=== PATIENT | female | born 1985 ===

== ENCOUNTER 2019-03-04 17:17 | Emergency (ER) | payer SELFPAY ==
[2019-03-04 17:22] VITALS: BP 104/69; PULSE 79; RESP 18; TEMP 98.4; O2SAT 99
--- NOTE | 2019-03-04 19:05 | C.PDOC ---
History Of Present Illness 33 y/o female pt presents to the ER c/o subjective dry cough and sore throat for x2 days. Pt reports she also had subjective fever but it has now subsided. Pt denies chills, abdominal pain and headache. Time Seen by Provider: 03/04/19 18:14 Chief Complaint (Nursing): Cough, Cold, Congestion History Per: Patient History/Exam Limitations: no limitations Onset/Duration Of Symptoms: Days (x2) Current Symptoms Are (Timing): Still Present Past Medical History Reviewed: Historical Data, Nursing Documentation, Vital Signs Vital Signs: Last Vital Signs Temp 98.4 F 03/04/19 17:20 Pulse 79 03/04/19 17:20 Resp 18 03/04/19 17:20 BP 104/69 03/04/19 17:20 Pulse Ox 99 03/04/19 17:20 Family History: States: No Known Family Hx - Social History Hx Alcohol Use: No Hx Substance Use: No Review Of Systems Except As Marked, All Systems Reviewed And Found Negative. Constitutional: Positive for: Fever (now subsided ). Negative for: Chills ENT: Positive for: Throat Pain Respiratory: Positive for: Cough (dry ) Gastrointestinal: Negative for: Abdominal Pain Neurological: Negative for: Headache Physical Exam - Physical Exam Appears: Non-toxic, No Acute Distress, Other (coughing ) Skin: Warm, Dry Ear(s): Bilateral: Normal Oral Mucosa: Moist Throat: Normal, No Erythema, No Exudate Neurological/Psych: Oriented x3, Normal Speech, Normal Cognition ED Course And Treatment O2 Sat by Pulse Oximetry: 99 (RA) Pulse Ox Interpretation: Normal - Radiology CXR: Interpreted by Me, Viewed By Me CXR Interpretation: Yes: No Acute Disease Progress Note: plans: -- CXR. -- Zithromax Disposition - Disposition Disposition: HOME/ ROUTINE Disposition Time: 19:03 Condition: STABLE Additional Instructions: Follow up with PMD within 2-3 days. Return to ED if feel worse. 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 - Scribe Statement The provider has reviewed the documentation as recorded by the Preethi Angulo Do All medical record entries made by the Preethi were at my direction and personally dictated by me. I have reviewed the chart and agree that the record accurately reflects my personal performance of the history, physical exam, medical decision making, and the department course for this patient. I have also personally directed, reviewed, and agree with the discharge instructions and disposition.
--- NOTE | 2019-03-05 17:48 | RAD ---
Date of service: 03/04/2019 HISTORY: cough, fever COMPARISON: No prior. TECHNIQUE: Chest PA and lateral views. Two views FINDINGS: LUNGS: No active pulmonary disease. PLEURA: No significant pleural effusion identified. No pneumothorax apparent. CARDIOVASCULAR: No aortic atherosclerotic calcification present. Normal cardiac size. No pulmonary vascular congestion. OSSEOUS STRUCTURES: No significant abnormalities. VISUALIZED UPPER ABDOMEN: Normal. OTHER FINDINGS: None. IMPRESSION: No active disease.
== END 2019-03-04 19:13 | disposition home or self-care (01) ==
LOC: C.ER 17:17
DX: J40 Bronchitis, not specified as acute or chronic (principal)